=== PATIENT | male | born 1990 | race Caucasian/White ===

== ENCOUNTER 2016-07-21 17:00 | Emergency (ER) | payer OTHER ==
[~2016-07-21] VITALS: Ht 180.3 cm; Wt 99.8 kg
[~2016-07-21 17:00] MED LIST: BUPR100T5 PO; BUSP10TA3 PO; METH10TA2 PO; QUET200T PO
--- NOTE | 2016-07-21 17:32 | NUR ---
at bedside patient pacing restless and agitated. Maeve bellamy called by [employer] supervisor.
[2016-07-21] MEDS ORDERED: LORAZEPAM 2 MG/1 ML VIAL ONE (17:44)
[2016-07-21] MEDS ORDERED: LORAZEPAM 2 MG/1 ML VIAL IM ONE (17:45)
[2016-07-21 18:07] LABS: BASOPHILS # (AUTO) 0.1 K/uL (0.0-0.2); EOSINOPHILS # (AUTO) 0.2 K/uL (0.0-0.7); EOSINOPHILS % (AUTO) 1.5 % (0.0-7.0); HEMATOCRIT 44.8 % (40.0-50.0); HEMOGLOBIN 15.8 g/dL (14.0-18.0); LYMPHOCYTES # (AUTO) 2.5 K/uL (0.8-4.8); LYMPHOCYTES % (AUTO) 21.9 % (20.5-51.5); MEAN CORPUSCULAR HEMOGLOBIN 30.3 uug (27.0-31.0); MEAN CORPUSCULAR HGB CONC 35 g/dL (32.0-37.0); MEAN CORPUSCULAR VOLUME 85.8 fL (82.0-92.0); MONOCYTES # (AUTO) 1.1 K/uL (0.1-1.30); MONOCYTES % (AUTO) 9.8 % (0.0-11.0); NEUTROPHILS # (AUTO) 7.5 K/uL (1.8-8.9); NEUTROPHILS % (AUTO) 65.8 % (38.5-71.5); PLATELET COUNT (AUTO) 209 K/uL (150-450); RED BLOOD CELL COUNT(AUTO) 5.22 MIL/uL (4.70-6.10); RED CELL DISTRIBUTION WIDTH 12.1 % (11.5-14.5); WHITE BLOOD COUNT (AUTO) 11.4 K/uL (4.0-11.2)
[2016-07-21 18:16] LABS: ETHANOL < 3 MG/DL (0-0)
[2016-07-21 18:22] LABS: ALANINE AMINOTRANSFERASE 62 U/L (16-63); ALBUMIN 4.5 g/dL (3.4-5.0); ALKALINE PHOSPHATASE 69 U/L (50-136); ASPARTATE AMINOTRANSFERASE 91 U/L (15-37); BILIRUBIN,DIRECT 0.2 mg/dL (0.0-0.2); BILIRUBIN,TOTAL 1.5 mg/dL (0.2-1.0); CALCIUM 9.4 mg/dL (8.5-10.1); CARBON DIOXIDE 27 mmol/L (21-32); CHLORIDE 99 mmol/L (98-107); GFR 61 mL/min (>60); GLUCOSE 104 mg/dL (74-106); POTASSIUM 3.7 mmol/L (3.5-5.1); SODIUM SERUM 139 mmol/L (136-145); TOTAL PROTEIN, SERUM 8.1 g/dL (6.4-8.2); UREA NITROGEN, BLOOD 15 mg/dL (7-18)
[2016-07-21 18:27] LABS: CREATININE 1.4 mg/dL (0.6-1.3)
[2016-07-21 18:57] LABS: *BLOOD, URINE NEGATIVE (NEGATIVE); *CLARITY,URINE CLEAR (CLEAR); *COLOR,URINE YELLOW (YELLOW); *KETONES,URINE 3+ (NEGATIVE); *PROTEIN,URINE 2+ (NEGATIVE); *UROBILINOGEN,URINE 0.2 E.U./dl (NORMAL); LEUKOCYTE ESTERASE ,URINE NEGATIVE (NEGATIVE); NITRITE, URINE NEGATIVE (NEGATIVE); UGLUCOSE NEGATIVE (NEGATIVE)
[2016-07-21 19:07] LABS: *BILIRUBIN,URIN 1+ (NEGATIVE)
--- NOTE | 2016-07-21 19:07 | NUR ---
Telephone report given to elliott Calles.
--- NOTE | 2016-07-21 19:07 | NUR ---
Urine bilirubin 2+ notified to Dr. Oreilly.
[2016-07-21 19:12] LABS: BACTERIA,URINE NONE SEEN /HPF (NONE SEEN); ICTOTEST POSITIVE (NEGATIVE); RBC,URINE NONE SEEN /HPF (0-3); SQUAMOUS EPITHELIAL CELL,UR FEW /HPF (NONE SEEN)
[2016-07-21 19:14] LABS: *AMPHETAMINE, URINE POSITIVE (NEGATIVE); *BARBITURATE, URINE NEGATIVE (NEGATIVE); *CANNABINOID, URINE POSITIVE (NEGATIVE); *COCCAINE, URINE NEGATIVE (NEGATIVE); *OPIATE, URINE POSITIVE (NEGATIVE); *PHENCYCLIDINE SCREEN,URINE NEGATIVE (NEGATIVE)
--- NOTE | 2016-07-21 19:36 | NUR ---
Robbi Uribe called for PET evaluation, ETA 25 min.
--- NOTE | 2016-07-21 20:06 | NUR ---
SURENDRA IS HERE TO SEE PATIENT.
[2016-07-21 20:24] LABS: THYROID STIMULATING HORMONE 1.684 mIU/mL (0.358-3.740)
[2016-07-21] MEDS ORDERED: OLANZAPINE 5 MG TABLET PO ONE (20:45)
--- NOTE | 2016-07-21 20:47 | NUR ---
Patient discharged to home in stable conditon. Written and verbal after care instructions given. Patient verbalizes understanding of instructions.
[2016-07-21 20:48] VITALS: BP 128/88
[2016-07-21] MEDS ORDERED: OLANZAPINE 5 MG TABLET ONE (20:55)
== END 2016-07-21 20:47 | disposition home or self-care (01) ==
LOC: ER 17:00
DX: F29 Unspecified psychosis not due to a substance or known physiological condition (principal); F20.0 Paranoid schizophrenia; F19.10 Other psychoactive substance abuse, uncomplicated; Z59.0 Homelessness
CPT/HCPCS: 36415; 80048; 80076; 80307; 81001; 84443; 85025; 96372; 99284; A4663; G0480; G0481; G0482; J2060; G6040-TC

== ENCOUNTER 2016-09-02 04:43 | Emergency (ER) | payer OTHER ==
[~2016-09-02] VITALS: Ht 188 cm; Wt 106.6 kg
--- NOTE | 2016-09-02 04:43 | NUR ---
PATIENT BROUGHT IN BY [facility] FROM [facility] FOR C/O ANXIETY X4 HRS, PT IS ALERT, ORIENTED X 4, NO RESP DISTRESS NOTED OR REPORTED UPON ASSESSMENT... MD AT BEDSIDE...
[2016-09-02] MEDS ORDERED: LORAZEPAM 0.5 MG TABLET PO ONE (05:00)
--- NOTE | 2016-09-02 05:09 | NUR ---
Patient discharged to home in stable conditon. Written and verbal after care instructions given. Patient verbalizes understanding of instructions. Pt walked out of ER unassisted with belongings at side...
[2016-09-02 05:13] VITALS: BP 133/81
[2016-09-02] MEDS ORDERED: LORAZEPAM 0.5 MG TABLET ONE (05:14)
== END 2016-09-02 05:13 | disposition home or self-care (01) ==
LOC: ER 04:49
DX: F41.9 Anxiety disorder, unspecified (principal); F19.10 Other psychoactive substance abuse, uncomplicated; F20.9 Schizophrenia, unspecified; Z59.0 Homelessness
CPT/HCPCS: A4663